=== PATIENT | female | born 1970 | race Caucasian/White ===

== ENCOUNTER 2020-10-13 14:49 | Outpatient (REF) | payer BC, SELFPAY ==
[2020-10-15 01:18] LABS: C. trachomatis RNA TMA NOT DETECTED (NOT DETECTED); N. gonorrhoeae RNA TMA NOT DETECTED (NOT DETECTED)
== END 2020-10-13 14:50 | disposition home or self-care (01) ==
LOC: HO.LAB 14:49
PROVIDERS: PCP Internal Medicine; Visit Provider Obstetrics & Gynecology
DX: Z01.419 Encounter for gynecological examination (general) (routine) without abnormal findings (principal); N92.0 Excessive and frequent menstruation with regular cycle; Z79.899 Other long term (current) drug therapy
CPT/HCPCS: 36415; 87491; 87591

== ENCOUNTER 2020-10-30 11:15 | Outpatient (REF) | payer BC, SELFPAY ==
--- NOTE | ~2020-10-30 | US_ITS ---
EXAMINATION: US PELVIS, COMPLETE US TRANSVAGINAL CLINICAL INFORMATION: Excessive and frequent menstruation. COMPARISON: 10/16/2019 TECHNIQUE: Transabdominal and transvaginal imaging was performed. FINDINGS: LMP: 10/19/2020 Uterus is anteverted, measuring 9.7 x 3.7 x 4.4 cm. Mild diffuse heterogeneous echotexture of the uterine parenchyma. The prior study of 10/16/2019 demonstrated multiple hypoechoic lesions in the uterus. Discrete demarcated lesion could not be clearly identified in today's study, which could be due to the diffuse heterogeneous echotexture. There are nabothian cysts present. Endometrial thickness 0.3 cm. Right ovary measures 2.7 x 1.9 x 1.7 cm. Volume 4.6 mL. Left ovary measures 2.4 x 1.5 x 2.3 cm. Volume 4.3 mL. Bilateral ovaries appear unremarkable. No free fluid in the cul-de-sac. US/US transvaginal IMPRESSION: 1. Marked diffuse heterogeneity of the uterine parenchyma. Discrete marginated lesions could not be clearly identified on today's study. The lesions seen on the prior study are not clearly evident on today's study. 2. Bilateral ovaries appear unremarkable.
--- NOTE | ~2020-10-30 | US_ITS ---
EXAMINATION: US PELVIS, COMPLETE US TRANSVAGINAL CLINICAL INFORMATION: Excessive and frequent menstruation. COMPARISON: 10/16/2019 TECHNIQUE: Transabdominal and transvaginal imaging was performed. FINDINGS: LMP: 10/19/2020 Uterus is anteverted, measuring 9.7 x 3.7 x 4.4 cm. Mild diffuse heterogeneous echotexture of the uterine parenchyma. The prior study of 10/16/2019 demonstrated multiple hypoechoic lesions in the uterus. Discrete demarcated lesion could not be clearly identified in today's study, which could be due to the diffuse heterogeneous echotexture. There are nabothian cysts present. Endometrial thickness 0.3 cm. Right ovary measures 2.7 x 1.9 x 1.7 cm. Volume 4.6 mL. Left ovary measures 2.4 x 1.5 x 2.3 cm. Volume 4.3 mL. Bilateral ovaries appear unremarkable. No free fluid in the cul-de-sac. US/US pelvic complete IMPRESSION: 1. Marked diffuse heterogeneity of the uterine parenchyma. Discrete marginated lesions could not be clearly identified on today's study. The lesions seen on the prior study are not clearly evident on today's study. 2. Bilateral ovaries appear unremarkable.
== END 2020-10-30 11:16 | disposition home or self-care (01) ==
LOC: HO.US 11:15
PROVIDERS: PCP Internal Medicine; Visit Provider Obstetrics & Gynecology
DX: N92.0 Excessive and frequent menstruation with regular cycle (principal)
CPT/HCPCS: 76830; 76856

== ENCOUNTER 2020-11-06 12:41 | Outpatient (REF) | payer BC, SELFPAY ==
[2020-11-06 13:15] LABS: MANUAL DIFF FLAG NO
[2020-11-06 13:19] LABS: Basophils Absolute Auto 0.1 X10*3/uL (0.0-0.2); Eosinophils Absolute Auto 0.2 X10*3/uL (0.0-0.4); Eosinophils Percent Auto 2.7 % (0-4); Hematocrit 41.1 % (37-47); Hemoglobin 13.8 g/dl (12.0-16.0); Imm Gran Abs Auto 0.02 X10*3/uL (0.00-0.03); Imm Gran Pct Auto 0.3 % (0.0-0.4); Lymphocytes Absolute Auto 1.8 X10*3/uL (1.2-4.9); Lymphocytes Percent Auto 25.4 % (20-40); Mean Corpuscular HGB Conc 33.6 g/dl (31.0-35.0); Mean Corpuscular Hemoglobin 29.2 pg (27.0-33.0); Mean Corpuscular Volume 87.1 fL (80-98); Mean Platelet Volume 8.8 fL (9.4-12.3); Monocytes Absolute Auto 0.6 X10*3/uL (0.1-1.2); Monocytes Percent Auto 8.5 % (2-11); Neutrophils Absolute Auto 4.3 X10*3/uL (2.0-8.3); Neutrophils Percent Auto 62.1 % (45-73); Platelet Count 431 X10*3/uL (160-400); Red Blood Count 4.72 X10*6/uL (4.20-5.50); Red Cell Distribution Width 13.2 % (11.0-16.0); White Blood Count 6.9 X10*3/uL (4.8-10.8)
[2020-11-07 09:57] LABS: C. trachomatis RNA TMA NOT DETECTED (NOT DETECTED); N. gonorrhoeae RNA TMA NOT DETECTED (NOT DETECTED)
== END 2020-11-06 12:42 | disposition home or self-care (01) ==
LOC: HO.LAB 12:41
PROVIDERS: PCP Internal Medicine; Visit Provider Obstetrics & Gynecology
DX: N92.0 Excessive and frequent menstruation with regular cycle (principal)
CPT/HCPCS: 36415; 85025; 87491; 87591

== ENCOUNTER 2020-11-14 06:12 | Day surgery (SDC) | payer BC, SELFPAY ==
[2020-11-07 18:43] VITALS: BMI 28.6
--- NOTE | 2020-11-13 10:10 | HO.ANESPROP2 ---
Documented by User: Ella Olsen 11/13/20 10:11 HPI - Anesthesia Eval Consult details Narrative: 49yo F for D&C Diagnostic Hysteroscopy PMFSH Active Problems Active Problems: All Active Problems (Updated 11/07/20 @ 18:38 by Minnie Galdamez RN) Well woman exam (Acute) Menorrhagia (Acute) Past Medical History Medical History Hypertension Family History Family History Father HTN (hypertension) Mother HTN (hypertension) Sister Thyroid disease Surgical History Surgical History History of lymph node excision Hx of cholecystectomy Hx of dilation and curettage Social History Social History Alcohol intake: never Smoking Status: Never smoker Second Hand Smoke Exposure: No Use of substances other than those prescribed or required for medical reasons: No Advance Directives: No Advance Directives Information Provided: Yes Recently lost weight without trying: No Meds Allergies Allergy/AdvReac Type Severity Reaction Status Date / Time prochlorperazine Allergy Unknown ANGIOEDEMA Verified 11/06/20 13:22 [From COMPAZINE] compazine Allergy Intermediate Anaphylaxis Uncoded 11/06/20 13:22 Home Medications Medication Instructions Recorded Confirmed Last Taken Type fexofenadine 180 mg tablet 180 mg PO DAILY 10/13/20 11/07/20 Unknown History fluticasone propionate 50 1 spray INTRANASAL DAILY 10/13/20 11/07/20 Unknown History mcg/actuation nasal spray,suspension losartan 25 mg tablet 25 mg PO DAILY 10/13/20 11/07/20 Unknown History Exam Exam Date and Time: November 13, 2020 1010 Height,Weight and Vital Signs: Height 5 ft 7 in Weight 83.007 kg Pertinent Lab Results Pertinent Lab Results: Laboratory Tests 11/06/20 13:02 WBC 6.9 Hgb 13.8 Hct 41.1 Plt Count 431 H Assessment and Plan Assessment Anesthesia Assessment: Chart Reviewed Documented by User: Guilherme Sykes 11/14/20 07:03 PMFSH Past Medical History Medical History Hypertension Family History Family History Father HTN (hypertension) Mother HTN (hypertension) Sister Thyroid disease Surgical History Surgical History History of lymph node excision Hx of cholecystectomy Hx of dilation and curettage Social History Social History Alcohol intake: never Smoking Status: Never smoker Second Hand Smoke Exposure: No Use of substances other than those prescribed or required for medical reasons: No Advance Directives: No Advance Directives Information Provided: Yes Recently lost weight without trying: No Meds Allergies Allergy/AdvReac Type Severity Reaction Status Date / Time prochlorperazine Allergy Unknown ANGIOEDEMA Verified 11/06/20 13:22 [From COMPAZINE] compazine Allergy Intermediate Anaphylaxis Uncoded 11/06/20 13:22 Home Medications Medication Instructions Recorded Confirmed Last Taken Type fexofenadine 180 mg tablet 180 mg PO DAILY 10/13/20 11/07/20 Unknown History fluticasone propionate 50 1 spray INTRANASAL DAILY 10/13/20 11/07/20 Unknown History mcg/actuation nasal spray,suspension losartan 25 mg tablet 25 mg PO DAILY 10/13/20 11/07/20 Unknown History Exam Airway Mallampati Class: II TM Dist: >3cm Neck ROM: Full
[2020-11-14] VITALS (7 sets, daily range): BP systolic 138–148; BP diastolic 85–106; PULSE 68–86; RESP 14–18; TEMP 36.6; O2SAT 94–98
[2020-11-14 06:30] LABS: UPreg QC Valid YES; Urine Pregnancy NEGATIVE (NEGATIVE)
[2020-11-14] MEDS: Lactated Ringers 1,000 ML 100 ML IVCONT (06:39)
--- NOTE | 2020-11-14 07:29 | MHC.SHP ---
Pre-Procedural Eval Section A The patient is an INPATIENT: No Changes since office visit: No Cold of Flu in the past 2 weeks, No New Medical Problems, No Changes in Medication and No Patient answered all questions The History & Physical has been completed within 30 days and I have reviewed it.: Yes Section B Chief Complaint: Frequent Menstruation, Irregular Cycle Allergies: Allergies Allergy/AdvReac Type Severity Reaction Status Date / Time prochlorperazine Allergy Unknown ANGIOEDEMA Verified 11/06/20 13:22 [From COMPAZINE] compazine Allergy Intermediate Anaphylaxis Uncoded 11/06/20 13:22 Plan Diagnosis/Plan: Unchanged I have reviewed the history and physical and performed a pertinent physical examination on my patient. No changes have occurred unless specified.
--- NOTE | 2020-11-14 08:03 | PM.OP ---
Brief Operative Note Date of Service: 11/14/20 Pre-op diagnosis: Endometrial polyp Post-op diagnosis: same Procedure: Hysteroscopy D&C, Polypectomy Surgeon: Willie Matamoros MD Anesthesia: MAC Estimated blood loss (mL): 0 Pathology: other (Endometrial Scrapping. Polyp) Condition: stable Disposition: PACU
--- NOTE | 2020-11-14 08:04 | P.OP_ITS ---
Operative Note Operative Note Date of Service: 11/14/20 Narrative: Preop Diagnosis: Endometrial polyp Operation: Diagnostic Hysteroscopy, Dilataion & Curettage and polypectomy Post Op Diagnosis: Endometrial Polyp QBL: Minimal Anesthesia: MAC Surgeon: Willie Matamoros MD Applied Psychology Teacher: None Complication: None Pathology: Endometrial Scrapings, Endometrial polyp Complication: None Pathology: Endometrial Scrapings, Endometrial polyp Procedure: The patient was put in the dorsal lithotomy position, scrubbed, and draped in the usual manner. A sterile speculum was inserted in the patient's vagina. The anterior lip of the cervix was grasped with a single tooth tenaculum. The cervix was dilated up to 5 mm, then the scope was inserted in the patient's uterus. Inspection revealed endometrial polyp. The Myosure Reach device was used; it was introduced through the operative channel and polypectomy done with no complications. At the end of the procedure, all instruments were taken out of the patient uterine and vaginal cavity. The single tooth tenaculum was removed and homeostasis was assured using pressure,. The patient tolerated the procedure well and was transferred to the PACU in a stable condition.
== END 2020-11-14 10:07 | disposition home or self-care (01) ==
PROVIDERS: PCP Internal Medicine; Visit Provider Obstetrics & Gynecology
PROC: 0UDB8ZX Extraction of Endometrium, Via Natural or Artificial Opening Endoscopic, Diagnostic (ICD-10-PCS; CPT 58558; principal; 2020-11-14 07:30)
DX: N92.1 Excessive and frequent menstruation with irregular cycle (principal); N84.0 Polyp of corpus uteri; I10 Essential (primary) hypertension; Z90.49 Acquired absence of other specified parts of digestive tract; Z79.899 Other long term (current) drug therapy; Z79.51 Long term (current) use of inhaled steroids; Z88.8 Allergy status to other drugs, medicaments and biological substances
CPT/HCPCS: 58558; 81025; 88305; J1100; J2250; J2405; J3010

== ENCOUNTER 2020-11-20 14:14 | Outpatient (REF) | payer BC, SELFPAY | END 2020-11-20 14:15 | disposition home or self-care (01) | LOC: HO.LAB 14:14 | PROVIDERS: Visit Provider Obstetrics & Gynecology | DX: R39.15 Urgency of urination (principal); N92.0 Excessive and frequent menstruation with regular cycle; N84.0 Polyp of corpus uteri; N81.6 Rectocele | CPT/HCPCS: 87086; 87088; 87186 ==

== ENCOUNTER → 2021-10-15 15:02 | Outpatient (BNVA) | payer BC, SELFPAY | PROVIDERS: Visit Provider Obstetrics & Gynecology ==

== ENCOUNTER → 2022-10-20 13:39 | Outpatient (BNVA) | payer BC, SELFPAY | PROVIDERS: Visit Provider Obstetrics & Gynecology | DX: Z13.89 Encounter for screening for other disorder (principal) ==

== ENCOUNTER 2023-10-25 12:51 | Outpatient (AMB) | payer BC, SELFPAY ==
[2023-10-25 12:53] VITALS: BP 112/76; BMI 29.3
--- NOTE | 2023-10-25 12:53 | A.OFFVIS_ITS ---
Intake Vital Signs 10/25/23 12:53 Height 5 ft 7 in Weight 187 lb BMI 29.3 BP 112/76 Intake Visit Reasons: Annual Hob Mill Operator Required: No Information Interpreted: non-clinical & clinical Harbormaster: Harbormaster Present (Aidyn) Allergies prochlorperazine [From COMPAZINE] Allergy (Unknown, Verified 10/25/23 12:56) ANGIOEDEMA compazine Allergy (Intermediate, Uncoded 10/25/23 12:56) Anaphylaxis Is last menstrual period known: No (july) Post menopausal: No HPI HPI Comments History of Present Illness Details Presenting for annual exam. No complaints. Last Pap/HPV was negative in 10/25 Last Mammogram was in 05/28 at [facility] according the patient was negative Last Colonoscopy was 3 years ago at [facility], the recommendation according the patient was repeat another screening colonoscopy in 7 years from the date of the previous colonoscopy [facility] Medical History Hypertension Surgical History History of lymph node excision Hx of dilation and curettage Hx of cholecystectomy Family History Father HTN (hypertension) Mother HTN (hypertension) Sister Thyroid disease Social History Household Members: Spouse Household Members Other:: son Housing: House Alcohol intake: never Patient Tobacco Use Status: Never used Tobacco Second Hand Smoke Exposure: No Current occupational status: employed 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 Reproductive History Menstrual Age of Menarche: 13 control method: none Total pregnancies: 2 Full term: 2 Number of Living Children: 2 Date of last pap smear: 10/15/19 (negative) History of abnormal pap smear: Yes (2014 2013 [facility]) Date of Mammogram: 04/02/19 Review of Systems Const All systems reviewed & are unremarkable except as noted in HPI and below Card Reports as per HPI Resp Reports as per HPI GI Reports as per HPI and Reports no additional complaints Reports as per HPI Physical Exam Vital Signs: Last Vital Signs BP 112/76 10/25/23 12:53 BMI result Body Mass Index 29.3 Const General: cooperative, healthy appearing and comfortable Chest Chest palpation & inspection: normal inspection of the chest and normal palpation of entire chest wall Breast/axilla inspection: normal inspection of the breasts and normal inspection of the axillae Breast/axilla palpation: normal palpation of the breasts, normal palpation of the axillae and no axillary lymphadenopathy Resp Effort & Inspection: normal respiratory effort Auscultation: clear to auscultation bilaterally Percussion: percussion normal Cardio Palpation: normal PMI Rate: regular rate Rhythm: regular rhythm Heart sounds: no murmurs and no rubs Peripheral pulses: Peripheral pulses 2+ throughout GI Inspection: Yes normal to inspection Palpation (GI): Soft to palpation, nontender, no guarding, not rigid and No hepatosplenomegaly present Percussion: Yes normal to percussion Auscultation: normal bowel sounds Rectal Exam - Female: deferred General: Yes bladder normal to palpation External Female Exam: No lesion Speculum Exam - Vagina: normal appearance of the vagina, normal palpation, normal vaginal discharge and not erythematous Speculum Exam - Cervix: normal appearance of the cervix and normal palpation Bimanual exam- vagina & uterus: normal bimanual exam, normal palpation, uterine size normal, bladder normal to palpation, consistency normal and normal palpation Bimanual Exam- Adnexa, other: normal adnexae, no masses and no tenderness Assessment & Plan Assessment & Plan (1) Well woman exam: Code(s): Z01.419 - Encounter for gynecological examination (general) (routine) without abnormal findings Plan: Co testing not indicated this year. Counseled the patient about the recommended dietary allowance of 1200 mg of Calcium & 600 IU of vitamin D. Instructions given the patient to schedule next screening Mammogram in 05/29. The patient was instructed to perform monthly self-breast exams and schedule annual exam in a year. All questions answered and the patient verbalized understanding. Coding Level of Care Code Est Pt Prev Care 40-64y(35584) Diagnoses Well woman exam Z01.419
== END 2023-10-25 13:13 | disposition home or self-care (01) ==
PROVIDERS: Visit Provider Obstetrics & Gynecology
DX: Z01.419 Encounter for gynecological examination (general) (routine) without abnormal findings (principal)
CPT/HCPCS: 99396

== ENCOUNTER → 2023-10-25 12:51 | Outpatient (BNVA) | payer BC, SELFPAY | PROVIDERS: Visit Provider Obstetrics & Gynecology ==

== ENCOUNTER 2025-03-20 08:39 | Outpatient (REF) | payer BC, SELFPAY ==
--- OUTSIDE RECORDS SUMMARY | 2025-03-20 09:53 | XMS_ITS ---
Author Name [facility] Organization Unknown History of Medication Use Medication Directions Dispensed Refills Start Date End Date Stat us potassium chloride ER tablet 40 mEq 40 mEq, Oral, Once, On 11/13/23 at 0045, For 1 doseDo not crush or chew tablet. To make a liquid dissolution from a tablet: 1) Place the whole tablet(s) in approximately cup of water (4 fluid ounces). 2) Allow approximately 2 minutes for the tablet(s) to disintegrate. 3) Stir for about mccabe 11/13/2023 11/13/2023 completed oxyCODONE-acetami nophen (PERCOCET) 5-325 MG per tablet Take 1 tablet by mouth every 4 (four) hours as needed for pain. 11/13/2023 active Allergies Allergen Reaction Severity Comment Documented Date Source Statu s PROCHLORPERAZINE SWELLING Tongue and throat swelling 11/12/2023 [facility] active Problems Problem Status Onset Date Problem Type Date of Resoluti on Source [facility]alemia [facility] Encounters Encounter Type Encounter Reason Primary Diagnosis Location Date Emergency Crohn's disease of large intestine without complications Crohn's disease of large intestine without complications [facility] 11/12/2023 Care Team Organization Name Specialty Phone Email Start Date End Da te [facility] 202303/19/2025 [facility] ROB GRANGER Primary Care 11/12 [facility] 11/13/2023
== END 2025-03-20 08:40 | disposition home or self-care (01) ==
LOC: HO.LNP 08:39
PROVIDERS: Visit Provider Obstetrics & Gynecology
DX: Z01.419 Encounter for gynecological examination (general) (routine) without abnormal findings (principal)
CPT/HCPCS: 87626; 88175

== ENCOUNTER 2025-03-20 08:39 | Outpatient (AMB) | payer BC, SELFPAY ==
--- OUTSIDE RECORDS SUMMARY | 2025-03-20 08:45 | XMS_ITS | Patient Health Record ---
Author Organization [facility] Address [address] [place] [address] Care Team Providers Care Precision Millwright Name Role Phone James BOYD, Dulce Primary Care Provider Un available Cole Rogers Unavailable [phone] Allergies Allergen (clinical drug ingredient) Drug/Non Drug Allergy documented on EMR Reaction Allergy Type Onset Date Status doxycycline Doxycycline Unknown Drug Allergy Act arianne Compazine Unknown Drug Allergy Active Reason For Referral No Information Plan Of Treatment No Information Insurance Providers Payer Name Payer Address Payer Phone Subscriber Number Group Number Insured Name Patient Relationship to Insured Coverage Start Date Coverage End Date [facility] [address] [place] [phone] [id number] JAISON BROWNE Self - patient is the insured Medical (General) History Medical History History ICD Code egd 8-1999 dysphagia Surgical History Surgery Date(Month/Year) cholecystectomy for gallstones in 1991
--- OUTSIDE RECORDS SUMMARY | 2025-03-20 08:45 | XMS_ITS | Clinical Summary ---
Author Organization [facility] Address [address] [place] [address] Care Team Providers Care Rn Observation Name Role Phone Vida Joy NP Primary Care Provider [phone] Allergies Active Allergy Reactions Criticality Noted Date Comments Prochlorperazine Swelling High 11/12/2023 Tongue and throat swelling Medications Medication Sig Dispensed Refills Start Date End Date Status oxyCODONE-acetaminoph en (PERCOCET) 5-325 MG per tablet Take 1 tablet by mouth every 4 (four) hours as needed for pain. 12 tablet 0 11/13/2023 Active Active Problems No known active problems Social History Tobacco Use Types Packs/Day Years Used Date Smoking Tobacco: Never Assessed Sex and Gender Information Value Date Recorded Sex Assigned at Female 11/12/2023 10:02 PM EST Gender Identity Not on file Sexual Orientation Not on file Job Start Date Occupation Industry Not on file Not on file Not on file Last Filed Vital Signs Vital Sign Reading Time Taken Comments Blood Pressure 134/99 11/12/2023 10:15 PM EST Pulse 92 11/12/2023 10:15 PM EST Temperature 36.9 C (98.4 F) 11/12/2023 10:15 PM EST Respiratory Rate 18 11/12/2023 10:15 PM EST Oxygen Saturation 97% 11/12/2023 10:15 PM EST Inhaled Oxygen Concentration - - Weight 79.4 kg (175 lb) 11/12/2023 10:15 PM EST Height 170.2 cm (5' 7 ) 11/12/2023 10:15 PM EST Body Mass Index 27.41 11/12/2023 10:15 PM EST Plan of Treatment Health Maintenance Due Date Last Done Comments Hepatitis B Vaccines (1 of 3 - 3-dose series) 1970 Hepatitis C Screening 1970 COVID-19 Vaccine (#1) 05/20/1971 Depression Screening 1982 Preventative Health Evaluation 1988 DTap / Tdap / Td (1 - Tdap) 1989 Cervical Cancer Screening (P ap Smear) 11/18/1991 Colon Cancer Screening (Colonoscopy) 11/18/2015 Breast Cancer Screening (Mammogram) 2020 Shingrix-Zoster Vaccine (1 of 2) 2020 Influenza Vaccine (#1) 2025 Pneumococcal Vaccine Aged Out No long er eligible based on patient's age to complete this topic RSV Ped < 20 months Aged Out No longe r eligible based on patient's age to complete this topic Care Teams Rn Observation Relationship Specialty Start Date End Date Vida Joy, BENCH SCIENTIST [address] [place] [address] PCP - General Family Medicine 11/12/23
--- OUTSIDE RECORDS SUMMARY | 2025-03-20 08:45 | XMS_ITS | Clinical Summary ---
Author Organization [facility] Address [address] [place] [address] Care Team Providers Care Manager Merchandise Name Role Phone Vida Joy NP Primary Care Provider [phone] Social History Tobacco Use Types Packs/Day Years Used Date Smoking Tobacco: Never Assessed Comments Unknown Sex and Gender Information Value Date Recorded Sex Assigned at Not on file Legal Sex Female 6:49 AM EST Gender Identity Not on file Sexual Orientation Not on file Obstetrics History Last Filed Vital Signs Vital Sign Reading Time Taken Comments Blood Pressure 125/81 11/06/2021 7:54 AM EST Sit ting L Arm Pulse 83 11/06/2021 7:54 AM EST Temperature - - Respiratory Rate - - Oxygen Saturation - - Inhaled Oxygen Concentration - - Weight 83.9 kg (185 lb) 11/06/2021 7:54 AM EST Height 170.2 cm (5' 7 ) 11/06/2021 7:54 AM EST Body Mass Index 28.97 11/06/2021 7:54 AM EST Plan of Treatment Health Maintenance Due Date Last Done Comments Breast Cancer Screening 1970 DTaP,Tdap,and Td Vaccines (1 - Tdap) 1989 Hepatitis B Vaccines (1 of 3 - 19+ 3-dose series) 1989 Cervical Cancer Screening: P ap Smear 11/18/1991 Pneumococcal Vaccine: 50+ Years (1 of 1 - PCV) 2020 Zoster Vaccines (1 of 2) 2020 Cholesterol Screening (Lipid Panel) 08/08/2022 Colorectal Cancer Screening: Colonoscopy 08/08/2022 Depression Screening 08/08/2022 HIV Screening 08/08/2022 Hepatitis C Screening 08/08/2022 Social Influencers of Health Screening 08/08/2022 COVID-19 Vaccine (1 - 2023-2 5 season) 2024 Hypertension/CHF/CAD Annual BMP Blood Test 11/11/2024 11/12/2023, 11/12/2023 Influenza Vaccine (#1) 2025 HIB Vaccines Aged Out No longer eligi ble based on patient's age to complete this topic HPV Vaccines Aged Out No longer eligi ble based on patient's age to complete this topic Hepatitis A Vaccines Aged Out No long er eligible based on patient's age to complete this topic IPV Vaccines Aged Out No longer eligi ble based on patient's age to complete this topic MMR Vaccines Aged Out No longer eligi ble based on patient's age to complete this topic Meningococcal ACWY Vaccine Aged Out N o longer eligible based on patient's age to complete this topic Meningococcal B Vaccine Aged Out No l onger eligible based on patient's age to complete this topic RSV Immunization Patients Under 20 months Aged Out No longer eligible b ased on patient's age to complete this topic Varicella Vaccines Aged Out No longer eligible based on patient's age to complete this topic Care Teams Manager Merchandise Relationship Specialty Start Date End Date Vida Joy, PAPERHANGER [place] [address] PCP - General 11/12/23
--- OUTSIDE RECORDS SUMMARY | 2025-03-20 08:45 | XMS_ITS | Clinical Summary ---
Author Organization [facility] Address [address] [place] [id number] Care Team Providers Care Printing Machine Operator Tape Rules Name Role Phone Pcp, No Primary Care Provider Unavailabl e Allergies Active Allergy Reactions Criticality Noted Date Comments Prochlorperazine Unknown 12/22/2019 Social History Tobacco Use Types Packs/Day Years Used Date Smoking Tobacco: Never Assessed Comments Unknown Sex and Gender Information Value Date Recorded Sex Assigned at Not on file Legal Sex Female 4:56 PM EST Gender Identity Not on file Sexual Orientation Not on file Last Filed Vital Signs Vital Sign Reading Time Taken Comments Blood Pressure 113/80 12/23/2019 1:30 AM EDT Pulse 67 12/23/2019 1:30 AM EDT Temperature 36.7 C (98 F) 12/23/2019 1:30 AM EDT Respiratory Rate 17 12/23/2019 1:30 AM EDT Oxygen Saturation 97% 12/23/2019 1:30 AM EDT Inhaled Oxygen Concentration - - Weight 87.9 kg (193 lb 12.6 oz) 12/22/2019 9:39 PM EDT Height 172.7 cm (5' 8 ) 12/22/2019 9:39 PM EDT Body Mass Index 29.46 12/22/2019 9:39 PM EDT Plan of Treatment Health Maintenance Due Date Last Done Comments CT Colonography 1970 Colonoscopy 1970 Colorectal Cancer Screening 1970 FIT-DNA 1970 FIT 1970 FOBT 1970 Mammogram 1970 Sigmoidoscopy 1970 Annual Physical Exam 1988 Tdap and Td Vaccines Adult 1989 Pap Smear 11/18/1991 Cervical Cancer Screening 2000 HPV/Cotest 2000 Pneumococcal Vaccine: 50+ Ye ars (1 of 1 - PCV) 2020 Zoster Vaccines (1 of 2) 2020 COVID-19 Vaccine (1 - 2023-2 5 season) 2024 Influenza Vaccine (#1) 2025 HIB Vaccines Aged Out No longer eligi ble based on patient's age to complete this topic HPV Vaccines (No Doses Required) Completed Hepatitis A Vaccines Aged Out No long er eligible based on patient's age to complete this topic IPV Vaccines Aged Out No longer eligi ble based on patient's age to complete this topic Meningococcal Vaccine Aged Out No joe flo eligible based on patient's age to complete this topic RSV <20 Months Aged Out No longer ronald gible based on patient's age to complete this topic Insurance [address] [employer] [employer] Care Teams Printing Machine Operator Tape Rules Relationship Specialty Start Date End Date Pcp, No [place] [address] PCP - General 12/22/19
--- NOTE | 2025-03-20 08:46 | A.OFFVIS_ITS ---
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 No complaints. Last Pap/HPV was negative in 10/25 Last Mammogram was in 05/29 at [facility] according the patient was negative Last Colonoscopy was 4 years ago at [facility], the recommendation according the patient was repeat another screening colonoscopy in 3 years from the date of the previous colonoscopy [facility] Medical History Hypertension Surgical History History of lymph node excision Hx of dilation and curettage Hx of cholecystectomy Family History Father HTN (hypertension) Mother HTN (hypertension) Sister Thyroid disease Social History Household Members: Spouse Household Members Other:: son Housing: House Alcohol intake: never Patient Tobacco Use Status: Never used Tobacco Second Hand Smoke Exposure: No Current occupational status: employed 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 Reproductive History Menstrual Age of Menarche: 13 control method: none Total pregnancies: 2 Full term: 2 Number of Living Children: 2 History of abnormal pap smear: Yes (positive 30+ years ago, cryo was done) Date of Mammogram: 05/16/24 History of abnormal mammogram: No Review of Systems Const All systems reviewed & are unremarkable except as noted in HPI and below Card Reports as per HPI Resp Reports as per HPI GI Reports as per HPI and Reports no additional complaints Reports as per HPI Physical Exam Vital Signs: BMI result Body Mass Index 26.6 Const General: cooperative, healthy appearing and comfortable Chest Chest palpation & inspection: normal inspection of the chest and normal palpation of entire chest wall Breast/axilla inspection: normal inspection of the breasts and normal inspection of the axillae Breast/axilla palpation: normal palpation of the breasts, normal palpation of the axillae and no axillary lymphadenopathy Resp Effort & Inspection: normal respiratory effort Auscultation: clear to auscultation bilaterally Percussion: percussion normal Cardio Palpation: normal PMI Rate: regular rate Rhythm: regular rhythm Heart sounds: no murmurs and no rubs Peripheral pulses: Peripheral pulses 2+ throughout GI Inspection: Yes normal to inspection Palpation (GI): Soft to palpation, nontender, no guarding, not rigid and No hepatosplenomegaly present Percussion: Yes normal to percussion Auscultation: normal bowel sounds Rectal Exam - Female: deferred General: Yes bladder normal to palpation External Female Exam: No lesion Speculum Exam - Vagina: normal appearance of the vagina, normal palpation, normal vaginal discharge and not erythematous Speculum Exam - Cervix: normal appearance of the cervix and normal palpation Bimanual exam- vagina & uterus: normal bimanual exam, normal palpation, uterine size normal, bladder normal to palpation, consistency normal and normal palpation Bimanual Exam- Adnexa, other: normal adnexae, no masses and no tenderness Assessment & Plan Assessment & Plan (1) Well woman exam: Code(s): Z01.419 - Encounter for gynecological examination (general) (routine) without a bnormal findings Category: Medical Plan: Co testing done. Counseled the patient about the recommended dietary allowance of 1200 mg of Calcium & 600 IU of vitamin D. Instructions given the patient to schedule next screening Mammogram in 05/30. The patient was instructed to perform monthly self-breast exams and schedule annual exam in a year. All questions answered and the patient verbalized understanding. Coding Level of Care Code Est Pt Prev Care 40-64y(17966) Diagnoses Well woman exam Z01.419
--- OUTSIDE RECORDS SUMMARY | 2025-03-20 08:46 | XMS_ITS | Data Portability ---
Author Organization [place] - [facility], Allergy Address [address] [address] Care Team Providers Care Liquid Natural Gas Plant Operator Name Role Phone BOOTH CARROL Referring Provider [phone] Assessment Encounter Date Assessment Date Assessment LastModified by Organization Details LastModified Time 06/27/2024 06/27/2024 hx of globus sensation with negative FOL, CT and BaSw except sclerotic submandibular gland on right. [place] sx resolved 18 months ago but now only over last 2 months feels discomfort radiating with swallowing from submandibular region down. No discomfort with eating just with swallowing Feels ibuprofen helps with pain that starts in right submandibular area to ear and lower neck. Feels little pieces of food getting caught in back of tongue like pieces of rice Examination shows large tongue and 2-3+ tonsils. There is a more prominent lymphoid follicle along the right tonsil but no discrete ulcer or mass. Base of tongue is soft and fiberoptic laryngoscopy is normal. No real pain or tenderness in the submandibular region. It is hard to sort out whether this discomfort is coming from the submandibular gland or from the tonsil and base of tongue region. I have suggested we get a follow-up CT scan. Her symptoms are certainly different over the last 2 months and they were 18 to 24 months ago. ana luisastein Not available 06/27/2024 09:03:01 Plan of Treatment Reminders Order Date Submit Date Provider Last Modified By Organization Details Last Modified Time Details Appointments None recorded. Lab None recorded. Referral None recorded. Procedures None recorded. Surgeries None recorded. Imaging CT, neck, soft tissue, w/ contrast - assess right tonsil and BOT compare to scan 10/2022 024 [facility], [address] [place], [address], 4 12:09:47 Medication Orders None recorded. Patient TargetsNo targets recorded. Patient InstructionsNo instructions recorded. Reason for Referral None Reported. Results Created Date Observation Date Name Description Value Unit Range Abnormal Flag Note LastModifiedBy Organization Detail LastModifiedTime 07/25/20 24 07/25/2024 CT, neck, soft tissu e, w/ contr ast No observ ation record ed. [email or web address] [facility] [address] [place], [address], 07/30/2024 08:54:08 Result Notes None recorded. Problems Name Problem SNOMED Code Status Onset Date Resolution Date Notes Provider Name and Address Organization Details Recorded Time Migraine 82215430 Active 2020 Other migraine , not intracta ble, without status migraino amna; Note: Date Diagnose d: 1 11:46 AM (G43.809 ) Not Available [facility] 4 03:12:35 Dysphagi a 61650766 Active 2022 Dysphagi a, unspecif ied; Note: Date Diagnose d: 3 2:04 PM (R13.10) Not Available [facility] 4 03:12:35 Chronic rhinitis 81394947 Active 2020 Chronic rhinitis ; Note: Date Diagnose d: 1 11:46 AM (J31.0) Not Available [facility] 4 03:12:36 Allergic rhinitis 66441131 Active 2020 Other allergic rhinitis ; Note: Date Diagnose d: 1 8:57 AM (J30.89) Not Available [facility] 4 03:12:36 Respirat ory finding 403680011 Active 2022 Feeling of foreign body in throat; Note: Date Diagnose d: 3 2:04 PM (R09.89) Not Available [facility] 4 03:12:36 Cardiova scular finding 000367717 Active 2022 Feeling of foreign body in throat; Note: Date Diagnose d: 3 2:04 PM (R09.89) Not Available [facility] 4 03:12:36 Chronic pharyngi tis 229737 Completed 202204/06/2024 Chronic sore throat; Note: Date Diagnose d: 3 2:04 PM (J31.2) Not Available [facility] 4 03:12:35 Deviated nasal septum 069860679 Active 2020 Deviated nasal septum; Note: Date Diagnose d: 1 11:46 AM (J34.2) Not Available [facility] 4 03:12:37 Feeling of lump in throat 850727587 Active 2023 RAZIA CLIFTON MD [address], [place], [address] , [place] - [facility] 4 09:03:06 Referred otalgia of right ear 80892879225 19013 Active 2023 RAZIA CLIFTON MD [address] [facility] [place],[address], [place], [address] , [place] [facility] 4 09:03:14 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 Active 2023 RAZIA CLIFTON MD [address] [facility] [place],[address], [place], [address] , [place] [facility] 4 09:03:48 Mass of head and/or neck 519840051 Active 2023 RAZIA CLIFTON MD [address] [facility] [place],[address], [place], [address] , [place] - [facility] 4 09:04:09 Localize d enlarged lymph nodes 012069792 Active 2023 RAZIA CLIFTON MD [address] [facility] [place], [place], [address] , [place] [facility] 4 09:04:09 Problem Notes None recorded. Procedures Surgical History Date Name Laterality Status Provider Name and Address Organization Details Recorded Time 06/27/20 24 Fiberoptic Laryngoscopy (Comprehensive) completed RAZIA CURRIE MD [address] [address], [place], [address], [facility] - [facility] 06/27/2024 09:05:56 cholecystectomy completed Gardenia Willett [place] - [facility] 06/27/2024 08:46:49 Imaging Results None recorded. Procedure Notes None recorded. Medical Equipment None Reported. Allergies Allergen ID Allergen Name Allergen Category Reaction Reaction Severity Criticality Documentation Date Start Date Code Code System Note Provider Name and Address Organization Details Recorded Time 717713 Compazine medicatio n other Not available Not available 01/17/202464703 6 RxNorm React ion: other react ion, Unkno wn; Not Available [facility] 01:21:11 Medications Name Sig Start Date Stop Date Status Note LastModified by Organization Details LastModified Time losartan 50 mg tablet TAKE 1 TABLET BY MOUTH EVERY DAY 06/27 completed Not Available Not Available Not Available potassium chloride ER 10 mEq capsule,e xtended release 20 milliequ ivalents every day by oral route. active Not Available Not Available No t Available oxycodone -acetamin ophen 5 mg-325 mg tablet TAKE 1 TABLET BY MOUTH EVERY 4 HOURS NEEDED FOR PAIN 06/27 completed Not Available Not Available Not Available benzonata te 100 mg capsule TAKE 1 CAPSULE BY MOUTH 3 TIMES A DAY FOR 7 DAYS 06/27 completed Not Available Not Available Not Available losartan 25 mg tablet 50 mg every day by oral route. 2023 active Not Available Not Available Not Avai lable hydrochlo rothiazid e 12.5 mg capsule 12.5 mg every day by oral route. active Not Available Not Available No t Available albuterol sulfate HFA 90 mcg/actua tion aerosol inhaler INHALE 2 PUFFS EVERY 6 HOURS active Not Available Not Available No t Available fluticaso ne propionat e 50 mcg/actua tion nasal spray,amna pension SPRAY 1 SPRAY INTO EACH NOSTRIL TWICE A DAY active Not Available Not Available No t Available amoxicill in 875 mg-potass ium clavulana te 125 mg tablet TAKE 1 TABLET BY MOUTH EVERY 12 HOURS FOR 7 DAYS 06/27 completed Not Available Not Available Not Available fluocinol one acetonide oil 0.01 % ear drops 5 DROPS EAR, LEFT 2 TIMES A DAY,X14 DAYS active Not Available Not Available No t Available [facility] 180 mg tablet 2020 active Medicati on ID: [id number] B rand Name: [facility] Send Method: E-Prescr ibed Sub s Allowed: subs OK Medic ationGen ericName : [facility] Not Available Not Available Not Available Vitals Date Recorded Body height Body weight Provider Name and Address Organization Details Last Updated DateTime 06/27/2024 170.18 cm 93111.59 g [place] Wil[place] - [facility] 06/27/2024 08:50:39 Social History None recorded. Functional Status None recorded. Mental Status None recorded. Family History Nothing Reported. Medical History Condition Response Allergies/Hayfever Y Hypertension Y Gynecological HistoryNo gynecological history recorded. 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 184288811 D37.9 Health Concerns Section Related Observation LastModified by Organization Detai ls LastModified Time None Recorded Concern Status LastModified by Organization Details LastModified Time None Recorded Advance Directives Directive None Recorded Payers Insurance Date Sequence Insurance Name Policy Number Policy Paul Covered Member ID Paul Member ID Guarantor Name 06/27/2024 1 [place] [facility] [place] [place] [id number] Frances Garcia [id number] Frances Garcia Notes Date Note Type Note Provider Name and Address Organization Details Recorded Time 06/27/2024 text/html hx of globus sensation with negative FOL, CT and BaSw except sclerotic submandibular gland on right. [place] sx resolved 18 months ago but now only over last 2 months feels discomfort radiating with swallowing from submandibular region down. No discomfort with eating just with swallowingFeels ibuprofen helps with pain that starts in right submandibular area to ear and lower neck. Feels little pieces of food getting caught in back of tongue like pieces of rice RAZIA CURRIE MD [address] [place] [address], [place], [address], [place] [facility] 06/27/2024 09:06:35 OBGyn Episode No OBEpisode recorded.
[2025-03-20 08:48] VITALS: BP 114/72; BMI 26.6
== END 2025-03-20 09:10 | disposition home or self-care (01) ==
LOC: HO.HWS 08:39
PROVIDERS: Visit Provider Obstetrics & Gynecology
DX: Z01.419 Encounter for gynecological examination (general) (routine) without abnormal findings (principal)
CPT/HCPCS: 99396; 99459

== ENCOUNTER 2025-08-20 09:16 | Outpatient (AMB) | payer BC, SELFPAY ==
--- NOTE | 2025-08-20 09:21 | MHC.OFFVIS ---
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 Required: No Information Interpreted: non-clinical & clinical Mail Handlers Supervisor: Mail Handlers Supervisor Present (Barbara RODRIGUEZ) Accompanied by: Self / Same As Patient Allergies prochlorperazine (From COMPAZINE) Allergy (Unknown, Verified 08/20/25 09:35) ANGIOEDEMA compazine Allergy (Intermediate, Uncoded 08/20/25 09:35) Anaphylaxis Post menopausal: Yes HPI Comments Details: Presenting with an episode of bleeding after 1 [facility] Medical History Hypertension Surgical History History of lymph node excision Hx of dilation and curettage Hx of cholecystectomy Family History Father HTN (hypertension) Mother HTN (hypertension) Sister Thyroid disease Social History Household Members: Spouse Household Members Other:: son Housing: House Alcohol intake: never Patient Tobacco Use Status: Never used Tobacco Second Hand Smoke Exposure: No 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 occupational status: employed 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 Reproductive History Menstrual Age of Menarche: 13 Review of Systems Const All systems reviewed & are unremarkable except as noted in HPI and below Physical Exam Vital Signs: Last Vital Signs BP 116/72 08/20/25 09:32 BMI result Body Mass Index 30.5 General: Yes no CVA tenderness External Female Exam: normal external appearance and normal appearance of the urethra Speculum Exam - Vagina: normal appearance of the vagina, normal palpation, no lesions and no masses Speculum Exam - Cervix: normal appearance of the cervix, normal palpation, no lesions, no masses and nontender Bimanual exam- vagina & uterus: normal bimanual exam, normal palpation, uterine size normal, normal palpation, uterine shape normal, No Cervical tenderness present and non-tender Bimanual Exam- Adnexa, other: normal adnexae Back/Spine/Pelvis Back: no CVA tenderness Assessment & Plan Assessment & Plan (1) Postmenopausal bleeding: Code(s): N95.0 - Postmenopausal bleeding Category: Medical Plan: FSH/LH ordered. Discussed with the patient the differential diagnosis of post menopausal bleeding with normal pelvic exam including but not limited to, endometrial hyperplasia, cancer, polyps and other causes; Recommended ultrasound to measure the endometrial stripe; discussed with the patient that if the endometrial thickness is 4 mm or less the negative predictive value of endometrial pathology is 99%, otherwise If endometrial thickness is more than 4 mm will proceed with endometrial sampling versus hysteroscopy D&C polypectomy depending on the ultrasound findings. Instructed the patient to schedule an ultrasound with a follow-up appointment in 2 weeks. All questions answered, the patient verbalized understanding and agreed with the plan. This note was generated with a voice recognition program. Some errors may have been overlooked during the review of this note. Sometimes these errors may affect the content or meaning of a given sentence. Orders: Orders Lutenizing Hormone Today N91.2 - Amenorrhea, unspecified Follicle Stimulating Hormone Today N91.2 - Amenorrhea, unspecified US pelvic and transvaginal Today N95.0 - Postmenopausal bleeding Coding Level of Care Code Est Pt Level 3 (27338) Diagnoses Postmenopausal bleeding N95.0
[2025-08-20 09:32] VITALS: BP 116/72; BMI 30.5
--- OUTSIDE RECORDS SUMMARY | 2025-08-20 10:42 | XMS_ITS | Clinical Summary ---
Author Organization [facility] Address [address] [place] [address] Care Team Providers Care Certified First Assistant Name Role Phone Pcp, No Primary Care [...] of 2) 2020 COVID-19 Vaccine (1 - 2024-2 6 season) 2025 Influenza Vaccine (#1) 2025 HIB Vaccines Aged [...] patient's age to complete this topic Insurance [employer] [facility] [employer] Care Teams Certified First Assistant Relationship Specialty Start Date End Date Pcp, [place] [address] PCP - General 12/22/19
--- OUTSIDE RECORDS SUMMARY | 2025-08-20 10:42 | XMS_ITS | Clinical Summary ---
Author Organization [facility] Prior to 02/02/[address] [place] [address] Care Team Providers Care Ecologist Technician Name Role Phone Vida Joy NP Primary Care Provider [phone] Allergies Active Allergy Reactions Criticality Noted Date [...] age to complete this topic Care Teams Ecologist Technician Relationship Specialty Start Date End Date Vida Joy, FOREST RESOURCES PROFESSOR [address] [place] [address] PCP - General Family Medicine 11/12/23
--- OUTSIDE RECORDS SUMMARY | 2025-08-20 10:43 | XMS_ITS | Patient Health Record ---
Author Organization [facility] Address [address] [facility] [address] [place] [address] Care Team Providers Care Tie In Hand Name Role Phone James BOYD, Dulce Primary Care Provider Un available Cole Rogers Unavailable [phone] Allergies Allergen (clinical drug ingredient) Drug/Non Drug Allergy documented on EMR Reaction Allergy Type Onset Date Status Compazine Unknown Drug Allergy Active doxycycline Doxycycline Unknown Drug Allergy Act arianne Reason For Referral No Information Plan Of Treatment No Information Insurance Providers Payer Name Payer Address Payer Phone Subscriber Number Group Number Insured Name Patient Relationship to Insured Coverage Start Date Coverage End Date [facility] [address] [place] [address] [phone] [id number] JAISON BROWNE Self - patient is the insured Medical (General) History Medical History History ICD Code egd 8-1999 dysphagia Surgical History Surgery Date(Month/Year) cholecystectomy for gallstones in 1991
--- OUTSIDE RECORDS SUMMARY | 2025-08-20 10:43 | XMS_ITS | Clinical Summary ---
Author Organization [facility] Address [address] [place] [address] Phone Care Team Providers Care Production Machine Shop Supervisor Name Role Phone Vida Joy NP Primary Care Provider [phone] Allergies Active Allergy Reactions Criticality Noted Date Comments Cefuroxime Hives 02/23/2010 Doxycycline Hives,Unknown 09/11/2021 Prochlorperazine Numbness,Other,Swell ing ,Anaphylaxis,Unknown High 02/23/2010 Tongue and throat swelling Tongue Swelling Compazine Medications No known medications Social History Tobacco Use Types Packs/Day Years Used Date Smoking Tobacco: Former Cigarettes Tobacco Cessation:Counseling Given: Not Answered Comments Unknown Sex and Gender Information Value Date Recorded Sex Assigned at Not on file Legal Sex Female 6:49 AM EST Gender Identity Not on file Sexual Orientation Not on file Last Filed Vital Signs Vital Sign Reading Time Taken Comments Blood Pressure 128/81 05/11/2025 12:25 PM EDT Pulse 65 05/11/2025 12:25 PM EDT Temperature 36.7 C (98.1 F) 05/11/2025 12:25 PM EDT Respiratory Rate 15 05/11/2025 12:25 PM EDT Oxygen Saturation 99% 05/11/2025 12:25 PM EDT Inhaled Oxygen Concentration - - Weight 88.5 kg (195 lb) 05/11/2025 9:56 AM EDT Height 170.2 cm (5' 7 ) 05/11/2025 9:56 AM EDT Body Mass Index 30.54 05/11/2025 9:56 AM EDT Plan of Treatment Health Maintenance Due Date Last Done Comments Breast Cancer Screening 1970 Colorectal Cancer Screening: Colonoscopy 1970 Hepatitis B Vaccines (1 of 3 - 19+ 3-dose series) 1989 Cervical Cancer Screening: Pap Smear 11/18/1991 Pneumococcal Vaccine: 50+ Years (1 of 1 - PCV) 2020 Zoster Vaccines (1 of 2) 2020 Cholesterol Screening (Lipid Panel) 08/08/2022 HIV Screening 08/08/2022 Hepatitis C Screening 08/08/2022 Social Influencers of Health Screening 08/08/2022 Depression Screening 09/05/2024 COVID-19 Vaccine ( season) 2025 08/21/2021, 10/11/2020, 09/13/2020 Influenza Vaccine (#1) 2025 , 07/14/2023, 06/30/2022, Additional history exists Hypertension/CHF/CAD Annual BMP Blood Test 05/11/2026 05/11/2025, 11/12/2023, 11/12/2023, Additional history exists DTaP,Tdap,and Td Vaccines (2 - Td or Tdap) 02/06/2029 02/06/2019 RSV Immunization Adult Patients (1 - 1-dose 75+ series) 2045 HIB Vaccines Aged Out No longer eligi [...] 20 months Aged Out No longer eligible based on patient's age to complete this topic Varicella Vaccines Aged Out No longer eligible based on patient's age to complete this topic Procedures Procedure Name Priority Date/Time Associated Diagnosis Comments COMPREHENSIVE METABOLIC PANEL STAT 05/11/2025 11:11 AM EDT from Last 3 Months or Most Recently Relevant to Health Maintenance Results * (ABNORMAL) Comprehensive metabolic panel (05/11/2025 11:11 AM EDT) Sodium 140 135 - 145 mmol/L LAB CHEMISTRY METHOD 05/11/2025 11:41 AM [facility] Potassium 3.5 3.5 - 5.1 mmol/L LAB CHEMISTRY METHOD 05/11/2025 11:41 AM [facility] Comment:Slight Hemolysis may affect test result(s). Chloride 105 98 - 107 mmol/L LAB CHEMISTRY METHOD 05/11/2025 11:41 AM [facility] CO2 27 24 - 32 mmol/L LAB CHEMISTRY METHOD 05/11/2025 11:41 AM [facility] Anion Gap 8 5 - 14 LAB CHEMISTRY METHOD 05/11/2025 11:41 AM [facility] Glucose 85 70 - 199 mg/dL LAB CHEMISTRY METHOD 05/11/2025 11:41 AM [facility] BUN 15 7 - 17 mg/dL LAB CHEMISTRY METHOD 05/11/2025 11:41 AM [facility] Creatinine 0.72 0.50 - 1.00 mg/dL LAB CHEMISTRY METHOD 05/11/2025 11:41 AM [facility] eGFR 100 >=60 mL/min/1. 73m2 LAB CHEMISTRY METHOD 05/11/2025 11:41 AM [facility] Comment:Calculation based on the Chronic Kidney Disease Epidemiology Collaboration (CKD-EPI) equation refit without adjustment for race. BUN/Creatinine Ratio 20.8(H) 12.0 - 20.0 LAB CHEMISTRY METHOD 05/11/2025 11:41 AM [facility] Calcium 9.1 8.4 - 10.2 mg/dL LAB CHEMISTRY METHOD 05/11/2025 11:41 AM EDT [facility] AST (SGOT) 19 5 - 40 unit/L LAB CHEMISTRY METHOD 05/11/2025 11:41 AM EDT [facility] Comment:Slight Hemolysis may affect test result(s). ALT (SGPT) 12 7 - 52 unit/L LAB CHEMISTRY METHOD 05/11/2025 11:41 AM EDT [facility] Alkaline Phosphatase 53 34 - 104 unit/L LAB CHEMISTRY METHOD 05/11/2025 11:41 AM EDT [facility] Total Protein 6.8 6.4 - 8.5 g/dL LAB CHEMISTRY METHOD 05/[facility] Albumin 4.0 3.5 - 5.0 g/dL LAB CHEMISTRY METHOD 05/11/2025 11[facility] Total Bilirubin 0.5 0.3 - 1.0 mg/dL LAB CHEMISTRY METHOD 05/11/2025 11:41 AM [facility] Blood Venous blood specimen / Unknown Venipuncture / Unknown 05/11/2025 11:11 AM EDT 05/11/2025 11:14 AM EDT Jann Merritt DO LAB BLOOD ORDERABLES Final Re sult [facility] [place] Reg. #:[id number] [address] [place] [address], from Last 3 Months or Most Recently Relevant to Health Maintenance Insurance [facility] Care Teams Production Machine Shop Supervisor Relationship Specialty Start Date End Date Vida Joy NP [address] [facility] [place] [address] PCP - General 11/12/23
== END 2025-08-20 10:00 | disposition home or self-care (01) ==
LOC: HO.HWS 09:17
PROVIDERS: Visit Provider Obstetrics & Gynecology
DX: N95.0 Postmenopausal bleeding (principal)
CPT/HCPCS: 99213

== ENCOUNTER 2025-08-20 09:16 | Outpatient (REF) | payer BC, SELFPAY ==
--- OUTSIDE RECORDS SUMMARY | 2025-08-20 13:22 | XMS_ITS | Data Portability ---
Author Organization [place] [facility], [facility] Address [address] [address] Care Team Providers Care Customs Guard Name Role Phone BOOTH CARROL Referring Provider Assessment Encounter Date Assessment Date Assessment LastModified by Organization Details LastModified Time 06/27/2024 06/27/2024 hx of globus sensation with negative FOL, CT and BaSw except sclerotic submandibular gland on right. [place] sx resolved 18 months ago but now [...] and BOT compare to scan 10/2022 024 [email or web address] [facility], [address] [place], [address], 4 12:09:47 Medication Orders None recorded. Patient TargetsNo targets recorded. Patient InstructionsNo instructions recorded. Reason for Referral None Reported. Results Created Date Observation Date Name Description Value Unit Range Abnormal Flag Note LastModifiedBy Organization Detail LastModifiedTime 07/25/20 24 07/25/2024 CT, neck, soft tissu e, w/ contr ast No observ ation record ed. [email or web address] [facility] [address] [place], [address], 07/30/2024 08:54:08 Result Notes None recorded. Problems Name Problem SNOMED Code Status Onset Date Resolution Date Notes Provider Name and Address Organization Details Recorded Time Migraine 14423591 Active 2020 Other migraine , not intracta ble, without status migraino amna; Note: Date Diagnose d: 1 11:46 AM (G43.809 ) Not Available [facility] 4 03:12:35 Chronic rhinitis 20067187 Active 2020 Chronic rhinitis ; Note: Date Diagnose d: 1 11:46 AM (J31.0) Not Available [facility] 4 03:12:36 Deviated nasal septum 483643287 Active 2020 Deviated nasal septum; Note: Date Diagnose d: 1 11:46 AM (J34.2) Not Available [facility] 4 03:12:37 Allergic rhinitis 02806835 Active 2020 Other allergic rhinitis ; Note: Date Diagnose d: 1 8:57 AM (J30.89) [facility] 4 03:12:36 Dysphagi a 30277805 Active 2022 Dysphagi a, unspecif ied; Note: Date Diagnose d: 3 2:04 PM (R13.10) Not Available [facility] 4 03:12:35 Respirat ory finding 884286713 Active 2022 Feeling of foreign body in throat; Note: Date Diagnose d: 3 2:04 PM (R09.89) Not Available [facility] 4 03:12:36 Cardiova scular finding 036856710 Active 2022 Feeling of foreign body in throat; Note: Date Diagnose d: 3 2:04 PM (R09.89) Not Available [facility] 4 03:12:36 Chronic pharyngi tis 271324 Completed 202204/06/2024 Chronic sore throat; Note: Date Diagnose d: 3 2:04 PM (J31.2) Not Available [facility] 4 03:12:35 Feeling of lump in throat 946450506 Active 2023 RAZIA CLIFTON MD [address], [place], [address] , [place] [facility] 4 09:03:06 Referred otalgia of right ear 97626042732 17223 Active 2023 RAZIA CLIFTON MD [address], [place], [address] , [place] [facility] 4 09:03:14 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 Procedures Surgical History Date Name Laterality Status Provider Name and Address Organization Details Recorded Time 06/27/20 24 Fiberoptic Laryngoscopy (Comprehensive) completed RAZIA CURRIE MD [address] [address], [place], [address], [facility] 06/27/2024 09:05:56 cholecystectomy completed Gardenia Willett [place] - [facility] 06/27/2024 08:46:49 Imaging Results None recorded. Procedure Notes None recorded. Medical Equipment None Reported. Allergies Allergen ID Allergen Name Allergen Category Reaction Reaction Severity Criticality Documentation Date Start Date Code Code System Note Provider Name and Address Organization Details Recorded Time 500554 Compazine medicatio n other Not available Not available 01/17/202418338 6 RxNorm React ion: other react ion, Unkno wn; Not Available [facility] 01:21:11 Medications Name Sig Start Date Stop [...] mg tablet 2020 active Medicati on ID: [id number] B rand Name: [facility] Send Method: E-Prescr ibed Sub s Allowed: subs OK Medic ationGen ericName : [facility] Not Available Not Available Not Available Vitals Date Recorded Body height Body weight Provider Name and Address Organization Details Last Updated DateTime 06/27/2024 170.18 cm 21927.59 g Gardenia Willett [place] [facility] 06/27/2024 08:50:39 Social History None recorded. Functional Status None recorded. Mental Status None recorded. Family History Nothing Reported. Medical History Condition Response Allergies/Hayfever Y Hypertension Y Gynecological HistoryNo gynecological history recorded. 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 782776933 D37.9 Health Concerns Section Related Observation LastModified by Organization Detai ls LastModified Time None Recorded Concern Status LastModified by Organization Details LastModified Time None Recorded Advance Directives Directive None Recorded Payers Insurance Date Sequence Insurance Name Policy Number Policy Paul Covered Member ID Paul Member ID Guarantor Name 06/27/2024 1 [place] [facility] [id number] Frances Garcia [id number] Frances Garcia Notes Date Note Type Note Provider Name and Address Organization Details Recorded Time 06/27/2024 text/html hx of globus sensation with negative FOL, CT and BaSw except sclerotic submandibular gland on right. [place] sx resolved 18 months ago but now only over last 2 months feels discomfort radiating with swallowing from submandibular region down. No discomfort with eating just with swallowingFeels ibuprofen helps with pain that starts in right submandibular area to ear and lower neck. Feels little pieces of food getting caught in back of tongue like pieces of rice RAZIA CURRIE MD [address] [place] [address], [place], [address], [place] [facility] 06/27/2024 09:06:35 OBGyn Episode No OBEpisode recorded.
--- OUTSIDE RECORDS SUMMARY | 2025-08-20 13:22 | XMS_ITS | Clinical Summary ---
Author Organization [facility] Address [address] [address] Phone Care Team Providers Care Weld Lay Out Worker Name Role Phone Dulce Ramirez MD Primary Care Provider Allergies Active Allergy Reactions Criticality Noted Date Comments Cefuroxime Hives 02/23/2010 Prochlorperazine Other (See Comments) 0 Tongue Swelling Medications EPINEPHrine (EPIPEN 2-JOSE) 0.3 mg/0.3 mL auto-injector EpiPen 2-Jose 0.3 mg/0.3 mL injection, auto-injector Active fexofenadine HCl (VINAYAK ALLERGY ORAL) Vinayak Allergy Active aspirin 81 MG EC tablet aspirin 81 mg tablet,delayed release Ac tive albuterol (PROAIR HFA) 90 mcg/actuation inhaler ProAir HFA 90 mcg/actuation aerosol inhaler Active hydroCHLOROth iazide (MICROZIDE) 12.5 mg capsule hydrochlorothiazide 12.5 mg capsule Active hydroCHLOROth iazide (HYDRODIURIL) 25 MG tablet hydrochlorothiazide 25 mg tablet Active Social History Tobacco Use Types Packs/Day Years Used Date Smoking Tobacco: Never Smokeless Tobacco: Never Alcohol Use Standard Drinks/Week Comments Yes 0 (1 standard drink = 0.6 oz pur e alcohol) Education Answer Date Recorded Are you interested in more education? Not on katarina e 01/17/2023 Are you concerned about learning? Not on file 01/17/2023 No 01/17/2023 No 01/17/2023 Digital Access Answer Date Recorded No 01/30/2023 No 01/30/2023 No 01/30/2023 Reliable internet access at home? Not on file 01/30/2023 Device with a working camera? Not on file Comments Unknown Sex and Gender Information Value Date Recorded Sex Assigned at Female 07/19/2019 6:56 PM EST Legal Sex Female 6:59 PM EST Gender Identity Female 07/19/2019 6:56 PM EST Sexual Orientation Not on file Last Filed Vital Signs Vital Sign Reading Time Taken Comments Blood Pressure 121/73 07/19/2019 10:55 PM EST Pulse 85 07/19/2019 10:55 PM EST Temperature 36.6 C (97.8 F) 07/19/2019 7:12 PM EST Respiratory Rate 18 07/19/2019 10:55 PM EST Oxygen Saturation 95% 07/19/2019 10:55 PM EST Inhaled Oxygen Concentration - - Weight - - Height - - Body Mass Index - - Plan of Treatment Health Maintenance Due Date Last Done Comments Adult Td,Tdap Booster 1970 LIPID PANEL 1970 DEPRESSION SCREENING 1982 HEPATITIS C SCREENING 1988 HIV ONE-TIME SCREENING (18-6 5 YEARS) 1988 PAP SMEAR 11/18/1991 MAMMOGRAM 2010 COLOGUARD 11/18/2015 COLONOSCOPY 11/18/2015 COLORECTAL CANCER SCREENING 11/18/2015 FIT TEST 11/18/2015 FOBT 11/18/2015 SIGMOIDOSCOPY 11/18/2015 VIRTUAL COLONOSCOPY 11/18/2015 POTASSIUM LEVEL 07/19/2020 07/19/2019 PNEUMOCOCCAL VACCINES (50+ years) (1 of 1 - PCV) 2020 ZOSTER VACCINES (1 of 2) 2020 INFLUENZA VACCINE (#1) 2025 , 06/28/2016 COVID-19 VACCINE (4 - 2024-2 6 season) 2025 08/21/2021, 10/11/2020, 09/13/2020 RSV VACCINE (1 - 1-dose 75+ series) 2045 SMOKING STATUS SCREENING (On ce After 26 Yrs) Completed 07/19/2019 HEPATITIS A VACCINES Aged Out No long er eligible based on patient's age to complete this topic HIB VACCINES Aged Out No longer eligi ble based on patient's age to complete this topic MENINGOCOCCAL VACCINES (ACWY) Aged Out No longer eligible based on patient's age to complete this topic MENINGOCOCCAL VACCINES (B) Aged Out N o longer eligible based on patient's age to complete this topic Medical Devices Not on file Procedures Procedure Name Priority Date/Time Associated Diagnosis Comments BASIC METABOLIC PANEL (BMP) STAT 07/19/2019 8:21 PM EST from Last 3 Months or Most Recently Relevant to Health Maintenance Results * (ABNORMAL) Basic metabolic panel (07/19/2019 8:21 PM EST) SODIUM 137 133 - 146 mmol/L [facility] CHLORIDE 99 96 - 108 mmol/L [facility] POTASSIUM 2.8(L) 3.3 - 5.1 mmol/L [facility] CO2 22 21 - 35 mmol/L [facility] BUN 17 6 - 19 mg/dL [facility] CREATININE 0.70 0.5 - 1.5 mg/dL [facility] GLUCOSE 118(H) 70 - 99 mg/dL [facility] CALCIUM 9.2 8.4 - 10.3 mg/dL [facility] EGFR 102 >59 mL/min/1.7 3m2 [facility] Comment:If patient is black, multiply result by 1.159. Estimated glomerular filtration rate calculated using the CKD-EPI equation. ANION GAP 19 10 - 20 mmol/L [facility] Blood 07/19/2019 8:21 PM EST 07/19/2019 8:27 PM EST Elizabeth Peterson MD LAB BLOOD BKR ORDERA BLES Final Result [facility] [address] [place] [address] from Last 3 Months or Most Recently Relevant to Health Maintenance Insurance [facility] HMO POS [employer] Care Teams Weld Lay Out Worker Relationship Specialty Start Date End Date Dulce Ramirez MD [address] [place] [address] [place] [address] [email or web address] PCP - General Internal Medicine 07/19/19 Additional Source Comments The information contained in this document represents components of the legal health record. It is not the complete legal health record.[facility]
[2025-08-21 10:08] LABS: Follicle Stimulating Hormone 40.8 mIU/mL
== END 2025-08-20 09:17 | disposition home or self-care (01) ==
LOC: HO.LAB 09:16
PROVIDERS: PCP Nurse Practitioner Family; Visit Provider Obstetrics & Gynecology
DX: N95.0 Postmenopausal bleeding (principal); N91.2 Amenorrhea, unspecified
CPT/HCPCS: 36415; 83001; 83002

== ENCOUNTER 2025-08-22 15:19 | Outpatient (REF) | payer BC, SELFPAY ==
--- NOTE | ~2025-08-22 | US_ITS ---
EXAMINATION: US PELVIS CLINICAL INFORMATION: Postmenopausal bleeding COMPARISON: 10/30/2020 TECHNIQUE: Ultrasound of the pelvis is performed using both transabdominal and transvaginal transducers along with Doppler. Transvaginal imaging is performed due to inadequate visualization transabdominally. FINDINGS: Uterus: The uterus is anteverted and measures 7.1 x 3.6 x 4.3 cm. The double wall endometrial thickness is mm. The uterus is smooth in contour and has coarse myometrial echogenicity. There are also punctate calcifications in the lower uterine segment. No visible fibroid. Adnexa: Both ovaries are visualized. There is normal color flow to the adnexa. There is no ovarian torsion. There is no pelvic ascites or fluid collection. Right ovary measures 1.9 x 1.4 x 1.3 cm. Left ovary measures 2.3 x 1.6 x 2.2 cm. US/US pelvic and transvaginal IMPRESSION: Mild thickening of the endometrium raises question of endometrial hyperplasia, carcinoma is not ruled out. Electronically signed by: Noble Pinto MD 08/22/2025 04:18 PM ALBERTINA ASHLEY
--- OUTSIDE RECORDS SUMMARY | 2025-08-22 19:17 | XMS_ITS | Clinical Summary ---
Author Organization [facility] Address [address] [employer] [address] [address] Phone Care Team Providers Care English Lecturer Name Role Phone Dulce Ramirez MD Primary [...] EST) SODIUM 137 133 - 146 mmol/L [facility] CHLORIDE 99 96 - 108 mmol/L [facility] POTASSIUM 2.8(L) 3.3 - 5.1 mmol/L [facility] CO2 22 21 - 35 mmol/L [facility] BUN 17 6 - 19 mg/dL [facility] CREATININE 0.70 0.5 - 1.5 mg/dL [facility] GLUCOSE 118(H) 70 - 99 mg/dL [facility] CALCIUM 9.2 8.4 - 10.3 mg/dL [facility] EGFR 102 >59 mL/min/1.7 3m2 [facility] Comment:If patient is black, multiply result by 1.159. Estimated glomerular filtration rate calculated using the CKD-EPI equation. ANION GAP 19 10 - 20 mmol/L [facility] Blood 07/19/2019 8:21 PM EST 07/19/2019 8:27 PM EST Elizabeth Peterson MD LAB BLOOD BKR ORDERA BLES Final Result [facility] [address] [place] [address] from Last 3 Months or Most Recently Relevant to Health Maintenance Insurance [facility] HMO POS [employer] Care Teams English Lecturer Relationship Specialty Start Date End Date Dulce Ramirez MD [address] [place] [address] [place] [address] [email or web address] PCP - General Internal Medicine 07/19/19 Additional Source Comments The information contained in this document represents components of the legal health record. It is not the complete legal health record.[facility]
--- OUTSIDE RECORDS SUMMARY | 2025-08-22 19:17 | XMS_ITS | Clinical Summary ---
Author Organization [facility] Prior to 02/02/[address] [place] [address] Care Team Providers Care Nuclear Instructor Name Role Phone Vida Joy NP Primary Care Provider Allergies Active Allergy Reactions [...] age to complete this topic Care Teams Nuclear Instructor Relationship Specialty Start Date End Date Vida Joy, MULTIMEDIA ASSISTANT [address] [place] [address] PCP - General Family Medicine 11/12/23
--- OUTSIDE RECORDS SUMMARY | 2025-08-22 19:17 | XMS_ITS | Clinical Summary ---
Author Organization [facility] Address [address] [place] [address] Phone Care Team Providers Care Chip Frier Name Role Phone Vida Joy NP Primary Care Provider [phone] Allergies Active Allergy Reactions Criticality Noted Date [...] mmol/L LAB CHEMISTRY METHOD 05/11/2025 11:41 AM [facility] Potassium 3.5 3.5 - 5.1 mmol/L LAB CHEMISTRY METHOD 05/11/2025 11:41 AM [facility] Comment:Slight Hemolysis may affect test result(s). Chloride 105 98 - 107 mmol/L LAB CHEMISTRY METHOD 05/11/2025 11:41 AM [facility] CO2 27 24 - 32 mmol/L LAB CHEMISTRY METHOD 05/11/2025 11:41 AM [facility] Anion Gap 8 5 - 14 LAB CHEMISTRY METHOD 05/11/2025 11:41 AM [facility] Glucose 85 70 - 199 mg/dL LAB CHEMISTRY METHOD 05/11/2025 11:41 AM [facility] BUN 15 7 - 17 mg/dL LAB CHEMISTRY METHOD 05/11/2025 11:41 AM [facility] Creatinine 0.72 0.50 - 1.00 mg/dL LAB CHEMISTRY METHOD 05/11/2025 11:41 AM [facility] eGFR 100 >=60 mL/min/1. 73m2 LAB CHEMISTRY METHOD 05/11/2025 11:41 AM [facility] Comment:Calculation based on the Chronic Kidney Disease Epidemiology Collaboration (CKD-EPI) equation refit without adjustment for race. BUN/Creatinine Ratio 20.8(H) 12.0 - 20.0 LAB CHEMISTRY METHOD 05/11/2025 11:41 AM [facility] Calcium 9.1 8.4 - 10.2 mg/dL LAB CHEMISTRY METHOD 05/11/2025 11:41 AM EDT [facility] AST (SGOT) 19 5 - 40 unit/L LAB CHEMISTRY METHOD 05/11/2025 11:41 AM EDT [facility] Comment:Slight Hemolysis may affect test result(s). ALT (SGPT) 12 7 - 52 unit/L LAB CHEMISTRY METHOD 05/11/2025 11:41 AM EDT [facility] Alkaline Phosphatase 53 34 - 104 unit/L LAB CHEMISTRY METHOD 05/11/2025 11:41 AM EDT [facility] Total Protein 6.8 6.4 - 8.5 g/dL LAB CHEMISTRY METHOD 05/11[facility]2025 [facility] Albumin 4.0 3.5 - 5.0 g/dL LAB CHEMISTRY METHOD 05/11[facility]2025 [facility] Total Bilirubin 0.5 0.3 - 1.0 mg/dL LAB CHEMISTRY METHOD 05/11/2025 11:41 AM [facility] Blood Venous blood specimen / Unknown Venipuncture / Unknown 05/11/2025 11:11 AM EDT 05/11/2025 11:14 AM EDT Jann Merritt DO LAB BLOOD ORDERABLES Final Re sult [facility] [place]. #:[id number] [address] [place] [address], from Last 3 Months or Most Recently Relevant to Health Maintenance Insurance [facility] Care Teams Chip Frier Relationship Specialty Start Date End Date Vida Joy NP [address] [address] PCP - General 11/12/23
--- OUTSIDE RECORDS SUMMARY | 2025-08-22 19:17 | XMS_ITS | Data Portability ---
Author Organization [place] [facility], Allergy Address [address] [address] Care Team Providers Care Slitter And Cutter Operator Name Role Phone BOOTH CARROL Referring Provider [phone] Assessment Encounter Date Assessment Date Assessment LastModified by Organization Details LastModified Time 06/27/2024 06/27/2024 hx of globus sensation with negative FOL, CT and BaSw except sclerotic submandibular gland on right. [place] sx resolved 18 months ago but now [...] and BOT compare to scan 10/2022 024 [facility], [address] [place], [address], 4 12:09:47 Medication Orders None recorded. Patient TargetsNo targets recorded. Patient InstructionsNo instructions recorded. Reason for Referral None Reported. Results Created Date Observation Date Name Description Value Unit Range Abnormal Flag Note LastModifiedBy Organization Detail LastModifiedTime 07/25/20 24 07/25/2024 CT, neck, soft tissu e, w/ contr ast No observ ation record ed. [email or web address] [facility] [address] [place], [address], 07/30/2024 08:54:08 Result Notes None recorded. Problems Name Problem SNOMED Code Status Onset Date Resolution Date Notes Provider Name and Address Organization Details Recorded Time Migraine 92033943 Active 2020 Other migraine , not intracta ble, without status migraino amna; Note: Date Diagnose d: 1 11:46 AM (G43.809 ) Not Available [facility] 4 03:12:35 Chronic rhinitis 28018541 Active 2020 Chronic rhinitis ; Note: Date Diagnose d: 1 11:46 AM (J31.0) Not Available [facility] 4 03:12:36 Deviated nasal septum 866861552 Active 2020 Deviated nasal septum; Note: Date Diagnose d: 1 11:46 AM (J34.2) Not Available [facility] 4 03:12:37 Allergic rhinitis 06462695 Active 2020 Other allergic rhinitis ; Note: Date Diagnose d: 1 8:57 AM (J30.89) [facility] 4 03:12:36 Dysphagi a 88897739 Active 2022 Dysphagi a, unspecif ied; Note: Date Diagnose d: 3 2:04 PM (R13.10) Not Available [facility] 4 03:12:35 Respirat ory finding 656905975 Active 2022 Feeling of foreign body in throat; Note: Date Diagnose d: 3 2:04 PM (R09.89) Not Available [facility] 4 03:12:36 Cardiova scular finding 600339366 Active 2022 Feeling of foreign body in throat; Note: Date Diagnose d: 3 2:04 PM (R09.89) Not Available [facility] 4 03:12:36 Chronic pharyngi tis 746809 Completed 202204/06/2024 Chronic sore throat; Note: Date Diagnose d: 3 2:04 PM (J31.2) Not Available [facility] 4 03:12:35 Feeling of lump in throat 346721684 Active 2023 RAZIA CLIFTON MD [address], [place], [address] , [place] [facility] [place] 4 09:03:06 Referred otalgia of right ear 32035800257 35703 Active 2023 RAZIA CLIFTON MD [address] [facility] [address], [place], [address] , [place] [facility] [place] 4 09:03:14 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 Active 2023 RAZIA CLIFTON MD [address] [facility], [place], [address] , [place] [facility] [place] 4 09:03:48 Mass of head and/or neck 317702802 Active 2023 RAZIA CLIFTON MD [address] [facility], [place], [address] , [place] [facility] [place] 4 09:04:09 Localize d enlarged lymph nodes 774535227 Active 2023 RAZIA CLIFTON MD [address] [facility], [place], [address] , [place] [facility] 4 09:04:09 Problem Notes None recorded. Procedures Surgical History Date Name Laterality Status Provider Name and Address Organization Details Recorded Time 06/27/20 24 Fiberoptic Laryngoscopy (Comprehensive) completed RAZIA CURRIE MD [address] [address], [place], [address], [facility] 06/27/2024 09:05:56 cholecystectomy completed Gardenia Willett [place] - [facility] 06/27/2024 08:46:49 Imaging Results None recorded. Procedure Notes None recorded. Medical Equipment None Reported. Allergies Allergen ID Allergen Name Allergen Category Reaction Reaction Severity Criticality Documentation Date Start Date Code Code System Note Provider Name and Address Organization Details Recorded Time 067711 Compazine medicatio n other Not available Not available 01/17/202425625 6 RxNorm React ion: other react ion, Unkno wn; Not Available [facility] 01:21:11 Medications Name Sig Start Date [...] mg tablet 2020 active Medicati on ID: [id number] B rand Name: [facility] Send Method: E-Prescr ibed Sub s Allowed: subs OK Medic ationGen ericName : [facility] Not Available Not Available Not Available Vitals Date Recorded Body height Body weight Provider Name and Address Organization Details Last Updated DateTime 06/27/2024 170.18 cm 33394.59 g Gardenia Willett [place] - [facility] 06/27/2024 08:50:39 Social History None recorded. 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 591726127 D37.9 Health Concerns Section Related Observation LastModified by Organization Detai ls LastModified Time None Recorded Concern Status LastModified by Organization Details LastModified Time None Recorded Advance Directives Directive None Recorded Payers Insurance Date Sequence Insurance Name Policy Number Policy Paul Covered Member ID Paul Member ID Guarantor Name 06/27/2024 1 [place] [facility] [place] [id number] Frances Garcia [id number] Frances Garcia Notes Date Note Type Note Provider Name and Address Organization Details Recorded Time 06/27/2024 text/html hx of globus sensation with negative FOL, CT and BaSw except sclerotic submandibular gland on right. [place] sx resolved 18 months ago but now only over last 2 months feels discomfort radiating with swallowing from submandibular region down. No discomfort with eating just with swallowingFeels ibuprofen helps with pain that starts in right submandibular area to ear and lower neck. Feels little pieces of food getting caught in back of tongue like pieces of rice RAZIA CURRIE MD [address] [place] [address], [place], [address], [place] [facility] 06/27/2024 09:06:35 OBGyn Episode No OBEpisode recorded.
--- OUTSIDE RECORDS SUMMARY | 2025-08-22 19:17 | XMS_ITS | Clinical Summary ---
Author Organization [employer] [facility] Address [address] [place] [address] Care Team Providers Care Non Destructive Testing Specialist Name Role Phone Pcp, No Primary Care [...] patient's age to complete this topic Insurance [employer] [facility] [employer] [facility] Care Teams Non Destructive Testing Specialist Relationship Specialty Start Date End Date Pcp, [place] [address] PCP - General 12/22/19
--- OUTSIDE RECORDS SUMMARY | 2025-08-22 19:17 | XMS_ITS | Patient Health Record ---
Author Organization [facility] Address [address] [facility] [address] [place] [address] Care Team Providers Care Promotor Group Ticket Sales Name Role Phone James BOYD, Dulec Primary Care Provider Un available Cole Rogers Unavailable [phone] Allergies Allergen (clinical drug ingredient) Drug/Non Drug Allergy documented on EMR Reaction Allergy Type Onset Date Status Compazine Unknown Drug Allergy Active doxycycline Doxycycline Unknown Drug Allergy Act arianne Reason For Referral No Information Plan Of Treatment No Information Insurance Providers Payer Name Payer Address Payer Phone Subscriber Number Group Number Insured Name Patient Relationship to Insured Coverage Start Date Coverage End Date [facility] [address] [place] [phone] [id number] JAISON BROWNE Self - patient is the insured Medical (General) History Medical History History ICD Code egd 8-1999 dysphagia Surgical History Surgery Date(Month/Year) cholecystectomy for gallstones in 1991
== END 2025-08-22 15:20 | disposition home or self-care (01) ==
LOC: HO.US 15:19
PROVIDERS: PCP Nurse Practitioner Family; Visit Provider Obstetrics & Gynecology
DX: N95.0 Postmenopausal bleeding (principal)
CPT/HCPCS: 76830; 76856

== ENCOUNTER → 2025-08-22 15:22 | Outpatient (BNV) | payer BC, SELFPAY | PROVIDERS: PCP Nurse Practitioner Family; Visit Provider Radiology Diagnostic Radiology | DX: N95.0 Postmenopausal bleeding (principal) | CPT/HCPCS: 76830; 76856 ==

== ENCOUNTER 2025-09-03 12:21 | Outpatient (REF) | payer BC, SELFPAY | END 2025-09-03 12:22 | disposition home or self-care (01) | LOC: HO.LNP 12:21 | PROVIDERS: PCP Nurse Practitioner Family; Visit Provider Obstetrics & Gynecology | DX: N95.0 Postmenopausal bleeding (principal) | CPT/HCPCS: 58100; 88305 ==

== ENCOUNTER 2025-09-03 12:21 | Outpatient (AMB) | payer BC, SELFPAY ==
--- NOTE | 2025-09-03 12:25 | A.OFFVIS_ITS ---
Vital Signs 09/03/25 12:26 Height 5 ft 7 in Weight 195 lb BMI 30.5 BP 106/62 Intake Visit Reasons: US follow up/ EMB or pre op [place] [employer] Manager Required: No Information Interpreted: non-clinical & clinical Asset Protection Manager: Asset Protection Manager Present (Barbara RODRIGUEZ) Accompanied by: Self / Same As Patient Allergies prochlorperazine (From COMPAZINE) Allergy (Unknown, Verified 09/03/25 12:30) ANGIOEDEMA compazine Allergy (Intermediate, Uncoded 09/03/25 12:30) Anaphylaxis Post menopausal: Yes HPI Comments Details: Presenting for ultrasound follow-up done recently which showed the following: IMPRESSION: Mild thickening of the endometrium raises question of endometrial hyperplasia, carcinoma is not ruled out. 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 Reproductive History Menstrual Age of Menarche: 13 Review of Systems Const All systems reviewed & are unremarkable except as noted in HPI and below Reports as per HPI and Reports no additional complaints GI Reports no additional complaints Reports no additional complaints Physical Exam Vital Signs: Last Vital Signs BP 106/62 09/03/25 12:26 BMI result Body Mass Index 30.5 Office Procedures Endometrial Biopsy Details: The patient was counseled regarding the indication and benefits of endometrial sampling to rule out endometrial pathology including not limited to endometrial hyperplasia or endometrial cancer and others; The alternatives (Either do nothing vs. hysteroscopy D&C) & the risks were discussed with the patient including but not limited: pain, uterine perforation, bleeding, infection, possible injury to bladder, bowel, ureter, possible need for blood transfusion with all its possible risks. The patient verbalized understanding all questions answered and signed consent. The patient was placed into the dorsal lithotomy position; a speculum was inserted in the vagina. Using aseptic technique for the procedure, the cervix was cleansed with Betadine. The anterior lip of the cervix was grasped with a single tooth tenaculum. The uterus was sounded to 7 cm with a 4 mm Pipelle was used. Tissues samples were obtained and placed in formalin, in a patient labeled container and sent to the pathology department. At the end of the procedure, there was minimal bleeding noted The patient tolerated the procedure well and was discharged in good condition with the following instructions: Nothing in the vagina until the bleeding stops. No sex until the bleeding stops, to call if any of the following occurs: fever (>100.4), flu-like symptoms, abdominal pain, heavy bleeding, four smelling vaginal discharge. The patient was instructed to schedule a Follow up appointment in 2 weeks to discuss pathology results of the biopsy and treatment options. This note was generated with a voice recognition program. Some errors may have been overlooked during the review of this note. Sometimes these errors may affect the content or meaning of a given sentence. 50532-Udtrakpmzcb Biopsy Assessment & Plan Assessment & Plan (1) Postmenopausal bleeding: Code(s): N95.0 - Postmenopausal bleeding Category: Medical Plan: Discussed with the patient the pelvic ultrasound findings, the endometrial stripe thickenss measured by ultrasound was more than 4mm. The negative predictive value, positive predictive value, Sensitivity, specificity of using ultrasound measurement of endometrial stripe to detecting endometrial pathology including hyperplasia , polyp or cancer were discussed with the patient. Recommended to the patient that the next step is an endometrial sampling via hysteroscopy D&C possible polypectomy versus endometrial biopsy to r/o endometrial pathology including hyperplasia or cancer. All the pros and cons risks and benefits of each approach were discussed with the patient, endometrial biopsy being less invasive, office procedure with less sensitivity and inability diagnose a polyp and removal versus hysteroscopy done under anesthesia more invasive more sensitive to endometrial cancer and possibility of diagnosing and endometrial polyp with the possibility of polypectomy. All questions were answered pt verbalized understanding and decided to proceed with endometrial biopsy. EMB done, see procedure note Orders: Orders Surgical Today N95.0 - Postmenopausal bleeding AMB Endometrial Biopsy Today N95.0 - Postmenopausal bleeding Coding Level of Care Code Procedure Only Diagnoses Postmenopausal bleeding N95.0 CPT Codes Endometrial Biopsy - CPT: 82141-Phcyrvzfvhy Biopsy ([id number])
[2025-09-03 12:26] VITALS: BP 106/62; BMI 30.5
--- OUTSIDE RECORDS SUMMARY | 2025-09-03 16:18 | XMS_ITS | Clinical Summary ---
Author Organization [facility] Address [address] [place] [address] Phone Care Team Providers Care Five Piece Expansion Maker Hand Name Role Phone Vida Joy NP Primary Care Provider [phone] Allergies Active Allergy Reactions Criticality Noted Date [...] mmol/L LAB CHEMISTRY METHOD 05/11/2025 11:41 AM [facility] Potassium 3.5 3.5 - 5.1 mmol/L LAB CHEMISTRY METHOD 05/11/2025 11:41 AM [facility] Comment:Slight Hemolysis may affect test result(s). Chloride 105 98 - 107 mmol/L LAB CHEMISTRY METHOD 05/11/2025 11:41 AM [facility] CO2 27 24 - 32 mmol/L LAB CHEMISTRY METHOD 05/11/2025 11:41 AM [facility] Anion Gap 8 5 - 14 LAB CHEMISTRY METHOD 05/11/2025 11:41 AM [facility] Glucose 85 70 - 199 mg/dL LAB CHEMISTRY METHOD 05/11/2025 11:41 AM [facility] BUN 15 7 - 17 mg/dL LAB CHEMISTRY METHOD 05/11/2025 11:41 AM [facility] Creatinine 0.72 0.50 - 1.00 mg/dL LAB CHEMISTRY METHOD 05/11/2025 11:41 AM [facility] eGFR 100 >=60 mL/min/1. 73m2 LAB CHEMISTRY METHOD 05/11/2025 11:41 AM [facility] Comment:Calculation based on the Chronic Kidney Disease Epidemiology Collaboration (CKD-EPI) equation refit without adjustment for race. BUN/Creatinine Ratio 20.8(H) 12.0 - 20.0 LAB CHEMISTRY METHOD 05/11/2025 11:41 AM [facility] Calcium 9.1 8.4 - 10.2 mg/dL LAB CHEMISTRY METHOD 05/11/2025 11:41 AM EDT [facility] AST (SGOT) 19 5 - 40 unit/L LAB CHEMISTRY METHOD 05/11/2025 11:41 AM EDT [facility] Comment:Slight Hemolysis may affect test result(s). ALT (SGPT) 12 7 - 52 unit/L LAB CHEMISTRY METHOD 05/11/2025 11:41 AM EDT [facility] Alkaline Phosphatase 53 34 - 104 unit/L LAB CHEMISTRY METHOD 05/11/2025 11:41 AM EDT [facility] Total Protein 6.8 6.4 - 8.5 g/dL LAB CHEMISTRY METHOD 05/11/2025 11:[facility] Albumin 4.0 3.5 - 5.0 g/dL LAB CHEMISTRY METHOD 05/11/2025 11:41 AM [facility] Total Bilirubin 0.5 0.3 - 1.0 mg/dL LAB CHEMISTRY METHOD 05/11/2025 11:41 AM [facility] Blood Venous blood specimen / Unknown Venipuncture / Unknown 05/11/2025 11:11 AM EDT 05/11/2025 11:14 AM EDT Jann Merritt DO LAB BLOOD ORDERABLES Final Re sult [facility] [place] Reg. #:[id number] [address] [place] [address], from Last 3 Months or Most Recently Relevant to Health Maintenance Insurance [facility] Care Teams Five Piece Expansion Maker Hand Relationship Specialty Start Date End Date Vida Joy NP [address] [facility] [place] [address] PCP - General 11/12/23
--- OUTSIDE RECORDS SUMMARY | 2025-09-03 16:18 | XMS_ITS | Clinical Summary ---
Author Organization [employer] [facility] Address [address] [place] [address] Care Team Providers Care Manufacturing Controls Engineer Name Role Phone Pcp, No Primary Care [...] patient's age to complete this topic Insurance [employer] [facility] [employer] CROSS Care Teams Manufacturing Controls Engineer Relationship Specialty Start Date End Date Pcp, [place] [address] PCP - General 12/22/19
--- OUTSIDE RECORDS SUMMARY | 2025-09-03 16:18 | XMS_ITS | Clinical Summary ---
Author Organization [facility] Prior to 02/02/[address] [place] [address] Care Team Providers Care Green Tire Inspector Name Role Phone Vida Joy NP Primary Care Provider [phone] Allergies Active Allergy Reactions Criticality Noted Date [...] age to complete this topic Care Teams Green Tire Inspector Relationship Specialty Start Date End Date Vida Joy, SKY DIVER [address] [place] [address] PCP - General Family Medicine 11/12/23
--- OUTSIDE RECORDS SUMMARY | 2025-09-03 16:18 | XMS_ITS | Clinical Summary ---
Author Organization [facility] Address [address] [address] Phone Care Team Providers Care Chalk Molding Machine Operator Name Role Phone Dulce Ramirez MD Primary [...] EST) SODIUM 137 133 - 146 mmol/L [facility] CHLORIDE 99 96 - 108 mmol/L [facility] POTASSIUM 2.8(L) 3.3 - 5.1 mmol/L [facility] CO2 22 21 - 35 mmol/L [facility] BUN 17 6 - 19 mg/dL [facility] CREATININE 0.70 0.5 - 1.5 mg/dL [facility] GLUCOSE 118(H) 70 - 99 mg/dL [facility] CALCIUM 9.2 8.4 - 10.3 mg/dL [facility] EGFR 102 >59 mL/min/1.7 3m2 [facility] Comment:If patient is black, multiply result by 1.159. Estimated glomerular filtration rate calculated using the CKD-EPI equation. ANION GAP 19 10 - 20 mmol/L [facility] Blood 07/19/2019 8:21 PM EST 07/19/2019 8:27 PM EST Elizabeth Peterson MD LAB BLOOD BKR ORDERA BLES Final Result [facility] [address] [place] [address] from Last 3 Months or Most Recently Relevant to Health Maintenance Insurance [facility] [employer] Care Teams Chalk Molding Machine Operator Relationship Specialty Start Date End Date Dulce Ramirez MD [address] [place] [address] [place] [address] [email or web address] PCP - General Internal Medicine 07/19/19 Additional Source Comments The information contained in this document represents components of the legal health record. It is not the complete legal health record.[facility]
--- OUTSIDE RECORDS SUMMARY | 2025-09-03 16:18 | XMS_ITS | Patient Health Record ---
Author Organization [facility] Address [address] [facility] [address] [place] [address] Care Team Providers Care Shaker Plate Operator Name Role Phone James BOYD, Dulce Primary Care Provider Un available Cole Rogers Unavailable [phone] Allergies Allergen (clinical drug ingredient) Drug/Non Drug Allergy documented on EMR Reaction Allergy Type Onset Date Status Compazine Unknown Drug Allergy Active doxycycline Doxycycline Unknown Drug Allergy Act arianne Reason For Referral No Information Plan Of Treatment No Information Insurance Providers Payer Name Payer Address Payer Phone Subscriber Number Group Number Insured Name Patient Relationship to Insured Coverage Start Date Coverage End Date [facility] [address] [place] [phone] [id number] JAISON BROWNE Self - patient is the insured Medical (General) History Medical History History ICD Code egd 8 dysphagia Surgical History Surgery Date(Month/Year) cholecystectomy for gallstones in 1991
--- OUTSIDE RECORDS SUMMARY | 2025-09-03 16:18 | XMS_ITS | Data Portability ---
Author Organization [place] - [facility], Allergy Address [address] [address] Care Team Providers Care Hospice Case Manager Name Role Phone BOOTH CARROL Referring Provider Assessment Encounter Date Assessment Date Assessment LastModified by Organization Details LastModified Time 06/27/2024 06/27/2024 hx of globus sensation with negative FOL, CT and BaSw except sclerotic submandibular gland on right. [place] sx resolved 18 months ago but now [...] and BOT compare to scan 10/2022 024 [email or web address] [facility], [address] [place], [address], 4 12:09:47 Medication Orders None recorded. Patient TargetsNo targets recorded. Patient InstructionsNo instructions recorded. Reason for Referral None Reported. Results Created Date Observation Date Name Description Value Unit Range Abnormal Flag Note LastModifiedBy Organization Detail LastModifiedTime 07/25/20 24 07/25/2024 CT, neck, soft tissu e, w/ contr ast No observ ation record ed. [email or web address] [facility] [address] [place], [address], 07/30/2024 08:54:08 Result Notes None recorded. Problems Name Problem SNOMED Code Status Onset Date Resolution Date Notes Provider Name and Address Organization Details Recorded Time Migraine 35294382 Active 2020 Other migraine , not intracta ble, without status migraino amna; Note: Date Diagnose d: 1 11:46 AM (G43.809 ) Not Available [facility] 4 03:12:35 Chronic rhinitis 09270439 Active 2020 Chronic rhinitis ; Note: Date Diagnose d: 1 11:46 AM (J31.0) Not Available [facility] 4 03:12:36 Deviated nasal septum 649804960 Active 2020 Deviated nasal septum; Note: Date Diagnose d: 1 11:46 AM (J34.2) Not Available [facility] 4 03:12:37 Allergic rhinitis 12066244 Active 2020 Other allergic rhinitis ; Note: Date Diagnose d: 1 8:57 AM (J30.89) [facility] 4 03:12:36 Dysphagi a 73730951 Active 2022 Dysphagi a, unspecif ied; Note: Date Diagnose d: 3 2:04 PM (R13.10) Not Available [facility] 4 03:12:35 Respirat ory finding 267763984 Active 2022 Feeling of foreign body in throat; Note: Date Diagnose d: 3 2:04 PM (R09.89) Not Available [facility] 4 03:12:36 Cardiova scular finding 258510371 Active 2022 Feeling of foreign body in throat; Note: Date Diagnose d: 3 2:04 PM (R09.89) Not Available [facility] 4 03:12:36 Chronic pharyngi tis 489700 Completed 202204/06/2024 Chronic sore throat; Note: Date Diagnose d: 3 2:04 PM (J31.2) Not Available [facility] 4 03:12:35 Feeling of lump in throat 049819443 Active 2023 RAZIA CLIFTON MD [address], [place], [address] , [place] - [facility] [place] 4 09:03:06 Referred otalgia of right ear 21254337939 02998 Active 2023 RAZIA CLIFTON MD [address] [facility], [place], [address] , [place] - [facility] [place] 4 09:03:14 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 RAZIA CLIFTON MD [address] [facility], [place], [address] , [place] [facility] [place] 4 09:03:48 Mass of head and/or neck 847385421 Active 2023 RAZIA CLIFTON MD [address] [facility], [place], [address] , [place] - [facility] [place] 4 09:04:09 Localize d enlarged lymph nodes 894137712 Active 2023 RAZIA CLIFTON MD [address] [facility], [place], [address] , [place] [facility] 4 09:04:09 Problem Notes None recorded. Procedures Surgical History Date Name Laterality Status Provider Name and Address Organization Details Recorded Time 06/27/20 24 Fiberoptic Laryngoscopy (Comprehensive) completed RAZIA CURRIE MD [address] [address], [place], [address], [facility] - [facility] 06/27/2024 09:05:56 cholecystectomy completed [place] Willett [place] - [facility] 06/27/2024 08:46:49 Imaging Results None recorded. Procedure Notes None recorded. Medical Equipment None Reported. Allergies Allergen ID Allergen Name Allergen Category Reaction Reaction Severity Criticality Documentation Date Start Date Code Code System Note Provider Name and Address Organization Details Recorded Time 214703 Compazine medicatio n other Not available Not available 01/17/202466431 6 RxNorm React ion: other react ion, Unkno wn; Not Available [facility] 01:21:11 Medications Name Sig Start Date Stop [...] mg tablet 2020 active Medicati on ID: [id number] B rand Name: [facility] Send Method: E-Prescr ibed Sub s Allowed: subs OK Medic ationGen ericName : [facility] Not Available Not Available Not Available Vitals Date Recorded Body height Body weight Provider Name and Address Organization Details Last Updated DateTime 06/27/2024 170.18 cm 20808.59 g [place] - [facility] 06/27/2024 08:50:39 Social History None [...] ICD10 Code Diagnosis IMO Codes Diagnosis Note [id number] RAZIA CLIFTON MD [facility] [address] [address] 06/27/2024 08:40:55 06/27/2024 09:07:35 Feeling of lump in throat 552393579 R09.89 Referred o talgia of right ear 6121898314 139176 H92.01 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 264849958 D37.9 Health Concerns Section Related Observation LastModified by Organization Detai ls LastModified Time None Recorded Concern Status LastModified by Organization Details LastModified Time None Recorded Advance Directives Directive None Recorded Payers Insurance Date Sequence Insurance Name Policy Number Policy Paul Covered Member ID Paul Member ID Guarantor Name 06/27/2024 1 [place] [facility] [id number] Frances Garcia [id number] Frances Garcia Notes Date Note Type Note Provider Name and Address Organization Details Recorded Time 06/27/2024 text/html hx of globus sensation with negative FOL, CT and BaSw except sclerotic submandibular gland on right. [place] sx resolved 18 months ago but now only over last 2 months feels discomfort radiating with swallowing from submandibular region down. No discomfort with eating just with swallowingFeels ibuprofen helps with pain that starts in right submandibular area to ear and lower neck. Feels little pieces of food getting caught in back of tongue like pieces of rice RAZIA CURRIE MD [address] [place] [address], [place], [address], [place] - [facility] 06/27/2024 09:06:35 OBGyn Episode No OBEpisode recorded.
== END 2025-09-03 13:41 | disposition home or self-care (01) ==
LOC: HO.HWS 12:21
PROVIDERS: PCP Nurse Practitioner Family; Visit Provider Obstetrics & Gynecology
DX: N95.0 Postmenopausal bleeding (principal)
CPT/HCPCS: 58100